=== PATIENT | female | born 1945 | race Caucasian/White ===

== ENCOUNTER 2017-03-27 19:28 | Emergency (ER) | payer OTHER | END 2017-03-27 21:13 | disposition home or self-care (01) | LOC: ER 19:28 | PROC: 0HQFXZZ Repair Right Hand Skin, External Approach (ICD-10-PCS; principal; 2017-03-27) | DX: S61.212A Laceration without foreign body of right middle finger without damage to nail, initial encounter (principal); S61.214A Laceration without foreign body of right ring finger without damage to nail, initial encounter; Z88.0 Allergy status to penicillin; W25.XXXA Contact with sharp glass, initial encounter | CPT/HCPCS: 73130-RT; 90471; 90714; 99283 ==